=== PATIENT | male | born 1945 | race Caucasian/White ===

== ENCOUNTER 2016-08-12 17:41 | Outpatient (CLI) | payer MEDICARE, OTHER | END 2016-08-12 17:42 | disposition home or self-care (01) | DX: R05 Cough (principal) ==

== ENCOUNTER 2017-01-19 15:22 | Outpatient (CLI) | payer MEDICARE, OTHER ==
[2017-01-19 18:58] LABS: BASOPHILS % (AUTO) 0.2 %; EOSINOPHILS # (AUTO) 0.1 10^3/uL (0.0-0.7); EOSINOPHILS % (AUTO) 1.1 %; HCT - HEMATOCRIT 43.3 % (42.0-52.0); HGB - HEMOGLOBIN 15.1 g/dL (14.0-18.0); LYMPHOCYTES # (AUTO) 0.4 10^3/uL (1.5-3.5); LYMPHOCYTES % (AUTO) 3.7 %; MEAN CORPUSCULAR HEMOGLOBIN 33.5 pg (27.0-31.0); MEAN CORPUSCULAR HGB CONC 34.8 g/dL (32.0-36.0); MEAN CORPUSCULAR VOLUME 96.3 fL (80.0-94.0); MEAN PLATELET VOLUME 9.5 fL (7.4-11.4); MONOCYTES # (AUTO) 0.6 10^3/uL (0.0-1.0); MONOCYTES % (AUTO) 5.4 %; NEUTROPHILS # (AUTO) 9.5 10^3/uL (1.5-6.6); NEUTROPHILS % (AUTO) 89.6 %; NUCLEATED RED BLOOD CELLS AUTO 0.1 /100WBC; RED BLOOD COUNT 4.49 10^6/uL (4.70-6.10); RED CELL DISTRIBUTION WIDTH 17.2 % (12.0-15.0); UNCORRECTED WHITE BLOOD COUNT 10.6 x10^3/uL; WHITE BLOOD COUNT 10.6 x10^3/uL (4.8-10.8)
[2017-01-19 19:32] LABS: FERRITIN 57.5 ng/mL (23.9-336.2)
[2017-01-19 19:36] LABS: FOLATE 13.71 ng/mL (5.90 - >24.8)
[2017-01-19 21:50] LABS: BILIRUBIN,TOTAL 2.4 mg/dL (0.2-1.0); CALCIUM 9.4 mg/dL (8.5-10.3); CREATININE 1.1 mg/dL (0.6-1.2); POTASSIUM 4.4 mmol/L (3.5-5.0); TOTAL PROTEIN 7.8 g/dL (6.7-8.2)
== END 2017-01-19 15:23 | disposition home or self-care (01) ==
LOC: LAB.F 15:22
PROVIDERS: ATTEND Physician Assistant Medical
DX: R05 Cough (principal); D63.8 Anemia in other chronic diseases classified elsewhere; Z79.899 Other long term (current) drug therapy
CPT/HCPCS: 36415; 80053; 82607; 82728; 82746; 83540; 84466; 85025

== ENCOUNTER 2017-10-26 14:12 | Outpatient (CLI) | payer MEDICARE, OTHER ==
[2017-10-26 17:41] LABS: BASOPHILS % (AUTO) 0.2 %; EOSINOPHILS # (AUTO) 0.1 10^3/uL (0.0-0.7); EOSINOPHILS % (AUTO) 1.6 %; HGB - HEMOGLOBIN 13.9 g/dL (14.0-18.0); LYMPHOCYTES # (AUTO) 0.3 10^3/uL (1.5-3.5); LYMPHOCYTES % (AUTO) 4.9 %; MEAN CORPUSCULAR HEMOGLOBIN 32.9 pg (27.0-31.0); MEAN CORPUSCULAR HGB CONC 33.7 g/dL (32.0-36.0); MEAN CORPUSCULAR VOLUME 97.6 fL (80.0-94.0); MEAN PLATELET VOLUME 10.4 fL (7.4-11.4); MONOCYTES # (AUTO) 0.3 10^3/uL (0.0-1.0); MONOCYTES % (AUTO) 5.1 %; NEUTROPHILS # (AUTO) 5.8 10^3/uL (1.5-6.6); NEUTROPHILS % (AUTO) 88.2 %; PLT - PLATELET COUNT 65 10^3/uL (130-450); RED BLOOD COUNT 4.24 10^6/uL (4.70-6.10); WHITE BLOOD COUNT 6.6 x10^3/uL (4.8-10.8)
[2017-10-26 18:02] LABS: ALBUMIN 3.5 g/dL (3.2-5.5); ALBUMIN/GLOBULIN RATIO 0.9 (1.0-2.2); BILIRUBIN,TOTAL 2.1 mg/dL (0.2-1.0); TOTAL PROTEIN 7.5 g/dL (6.7-8.2)
== END 2017-10-26 14:13 | disposition home or self-care (01) ==
LOC: LAB.F 14:12
PROVIDERS: ATTEND Physician Assistant Medical
DX: E87.6 Hypokalemia (principal); D63.8 Anemia in other chronic diseases classified elsewhere
CPT/HCPCS: 36415; 80053; 85025

== ENCOUNTER 2018-01-05 15:06 | Emergency (ER) | payer MEDICARE, OTHER ==
--- NOTE | 2018-01-05 16:00 | XRAY Report ---
EXAM: CHEST RADIOGRAPHY EXAM DATE: 01/05/2018 03:45 PM. CLINICAL HISTORY: Difficulty breathing. COMPARISON: 04/02/2016 and 12/21/2015. TECHNIQUE: 2 views. FINDINGS: Lungs/Pleura: There are moderate coarse reticular and bandlike densities in the right midlung and at both lung bases. There is right-sided pleural thickening and blunting of the costophrenic angles. The se findings appear chronic and without significant interval change. Negative for pneumothorax. Mediastinum: There are findings of previous sternotomy with fracture of the sternotomy wires, similar to previous. Heart size unchanged. Trachea is midline. Other: There are multiple old posterior right rib fractures. IMPRESSION: 1. Chronic bilateral pulmonary parenchymal and pleural densities appearing similar to 2 years earlier . Likely chronic interstitial fibrosis or postinflammatory scarring with right-sided pleural thickeni ng and evidence of old right chest wall trauma. [facility] Referring Provider Line: [phone] SITE ID: [id number]
--- NOTE | 2018-01-05 16:03 | ED Physician Documentation ---
PD HPI DYSPNEA - Stated complaint Stated Complaint: SOA - Chief complaint Chief Complaint: Resp - History obtained from History obtained from: Patient - History of Present Illness Timing - onset: How many weeks ago (a week of worse breathing, cough, wheezing despite home nebs (only using bid/tid though). Much worse breathing overnight into today.) Review of Systems Constitutional: reports: Chills, Myalgias, Fatigue. denies: Fever Nose: reports: Congestion. denies: Rhinorrhea / runny nose Throat: reports: Sore throat Cardiac: denies: Chest pain / pressure, Palpitations, Pedal edema, Calf pain Respiratory: reports: Dyspnea GI: reports: Abdominal Swelling (chronic). denies: Abdominal Pain, Nausea, Vomiting, Diarrhea : denies: Dysuria, Frequency Skin: denies: Rash Musculoskeletal: denies: Back pain, Extremity swelling Neurologic: reports: Generalized weakness. denies: Near syncope Endocrine: reports: Weight loss Immunocompromised: denies: Immunocompromised PD PAST MEDICAL HISTORY - Past Medical History Cardiovascular: Hypertension, High cholesterol, Coronary artery disease, [place], Atrial fibrillation, Other Respiratory: COPD, Pneumonia, Shortness of breath Endocrine/Autoimmune: None GI: GERD, Cirrhosis : Incontinence, Frequency HEENT: Other Psych: Anxiety Musculoskeletal: None Derm: None - Past Surgical History Past Surgical History: Yes General: Colonoscopy, EGD Ortho: Other Cardiovascular: CABG - Present Medications Home Medications: Ambulatory Orders Medication Instructions Recorded Confirmed Buspirone HCl 15 mg PO BID 04/19/15 01/05/18 Digoxin [Lanoxin] 250 mcg PO DAILY 04/19/15 01/05/18 Omeprazole [PriLOSEC] 40 mg PO DAILY 04/19/15 01/05/18 Oxybutynin [Ditropan] 5 mg PO DAILY 04/19/15 01/05/18 Potassium Chloride 10 meq PO DAILY 04/19/15 01/05/18 Tamsulosin [Flomax] 0.4 mg PO DAILY 04/19/15 01/05/18 Aspirin [Aspirin EC] 81 mg PO DAILY 04/25/15 01/05/18 Citalopram [CeleXA] 40 mg PO DAILY 04/25/15 01/05/18 Metoprolol Succinate [Toprol Xl] 25 mg PO DAILY 04/25/15 01/05/18 Diltiazem HCl [Diltiazem 24Hr ER] 180 mg PO DAILY 06/29/15 01/05/18 Furosemide 40 mg PO DAILY 06/29/15 01/05/18 Nitroglycerin [Nitrostat] 0.4 mg SL Q5MIN PRN 06/29/15 01/05/18 Albuterol Sulfate [Proair Hfa 2 puffs INH Q6H PRN 01/05/18 01/05/18 Inhaler] Dexamethasone [Decadron] 4 mg PO DAILY #15 tablet 01/05/18 Ipratropium/Albuterol [Duoneb] 3 ml INH Q6H 01/05/18 01/05/18 Spironolactone 100 mg PO DAILY 01/05/18 01/05/18 Tizanidine HCl 4 mg PO TID PRN 01/05/18 01/05/18 - Allergies Allergies/Adverse Reactions: Allergies Allergy/AdvReac Type Severity Reaction Status Date / Time No Known Drug Allergies Allergy Verified 04/19/15 18:47 - Social History Does the pt smoke?: Yes Smoking Status: Current every day smoker Does the pt drink ETOH?: Yes Does the pt have substance abuse?: No - Family History Family history: reports: Non contributory, COPD - Immunizations Immunizations are current?: Yes - POLST Patient has POLST: No PD ED PE NORMAL - Vitals Vital signs reviewed: Yes - General General: Alert and oriented X 3, Well developed/nourished, Other (tachypnea and work of breathing. ) - HEENT HEENT: Ears normal, Pharynx benign - Neck Neck: Supple, no meningeal sign, No adenopathy - Cardiac Cardiac: RRR, No murmur - Respiratory Respiratory: No: Clear bilaterally (diffuse severe wheezing; no coarse sounds. ) - Abdomen Abdomen: Soft, Non tender, No organomegaly, Other (moderately distended and dullness to percussing, c/w some ascites. Not tense. ). No: Normal bowel sounds (diminished) - Male Male : Deferred - Rectal Rectal: Deferred - Back Back: No CVA TTP - Derm Derm: Normal color, Warm and dry - Extremities Extremities: No deformity, No tenderness to palpate, Normal ROM s pain, No edema , No calf tenderness / cord - Neuro Neuro: Alert and oriented X 3, No motor deficit, Normal speech Results - Vitals Vitals: Vital Signs - 24 hr 01/05/18 01/05/18 01/05/18 15:13 16:05 16:38 Temperature 36.3 C L 36.8 C Heart Rate 71 62 72 Respiratory 22 28 H 21 Rate Blood Pressure 125/97 H 108/72 O2 Saturation 99 99 01/05/18 01/05/18 01/05/18 17:00 17:19 17:38 Temperature 36.8 C 37.3 C Heart Rate 61 64 68 Respiratory 26 H 27 H 30 H Rate Blood Pressure 124/68 110/61 O2 Saturation 96 98 01/05/18 17:47 Temperature 37.2 C Heart Rate 77 Respiratory 28 H Rate Blood Pressure 121/60 O2 Saturation 95 Oxygen O2 Source [With Activity] Nasal cannula O2 Source [Without Activity] Nasal cannula O2 Source Nasal cannula Oxygen Flow Rate 3 - Labs Labs: Laboratory Tests 01/05/18 01/05/18 01/05/18 16:25 16:25 16:25 WBC 6.4 RBC 4.09 L Hgb 12.8 L Hct 38.1 L MCV 93.2 MCH 31.2 H MCHC 33.5 RDW 17.1 H Plt Count 57 L MPV 8.2 Neut # (Auto) 5.4 Lymph # (Auto) 0.3 L [place] # (Auto) 0.5 Eos # (Auto) 0.2 Baso # (Auto) 0.0 Absolute Nucleated RBC 0.01 Nucleated RBC % 0.1 Sodium 125 L Potassium 4.2 Chloride 95 L Carbon Dioxide 25 Anion Gap 5.0 L BUN 15 Creatinine 1.0 Estimated GFR (MDRD) 74 L Glucose 140 H Lactic Acid Calcium 8.2 L Magnesium 1.9 Total Bilirubin 2.0 H AST 24 ALT 21 Alkaline Phosphatase 89 Ammonia B-Natriuretic Peptide 230 H Total Protein 6.8 Albumin 3.0 L Globulin 3.8 Albumin/Globulin Ratio 0.8 L Lipase 26 Last Dose Date Last Dose Time Digoxin 01/05/18 01/05/18 01/05/18 16:25 16:25 17:30 WBC RBC Hgb Hct MCV MCH MCHC RDW Plt Count MPV Neut # (Auto) Lymph # (Auto) [place] # (Auto) Eos # (Auto) Baso # (Auto) Absolute Nucleated RBC Nucleated RBC % Sodium Potassium Chloride Carbon Dioxide Anion Gap BUN Creatinine Estimated GFR (MDRD) Glucose Lactic Acid 2.0 Calcium Magnesium Total Bilirubin AST ALT Alkaline Phosphatase Ammonia 22.2 B-Natriuretic Peptide Total Protein Albumin Globulin Albumin/Globulin Ratio Lipase Last Dose Date UNKNOWN Last Dose Time UNKNOWN Digoxin 2.2 - Rads (name of study) chest xray Radiology: Prelim report reviewed (diffuse scarring or changes c/w fibrosis and COPD. ), EMP read contemporaneously PD MEDICAL DECISION MAKING - ED course Complexity details: reviewed results (given the diffuse changes on xray, would be hard to tell if new infiltrate or such, and given history of COPD, would benefit from empiric abx Rx. ), re-evaluated patient (he is still having work of breathing and diffuse wheezing. He has had this for a week but worse the past day. Numbers (sats, vitals, labs) are good. I think he would benefit from more aggressive treatment in the hospital but he wants to go home. He is encouraged to return if worse or not readily improving. ), considered differential, d/w patient, d/w family (sister) Departure - Departure Disposition: Home, Self Care Clinical Impression: Severe chronic obstructive pulmonary disease, Dyspnea and respiratory abnormality, COPD exacerbation, Hyponatremia Chronic liver failure Qualifiers: Hepatic coma status: without hepatic coma Qualified Code(s): K72.10 - Chronic hepatic failure without coma Congestive heart failure Qualifiers: Heart failure type: unspecified Heart failure chronicity: chronic Qualified Code(s): I50.9 - Heart failure, unspecified Condition: Stable Record reviewed to determine appropriate education?: Yes Instructions: ED Bronchitis Asthmatic, ED COPD Flare Follow-Up: Kristen Schmitz PA-C [Primary Care Provider] - Prescriptions: Dexamethasone [Decadron] 4 mg PO DAILY #15 tablet Comments: This seems to be a flareup of the COPD and does not look like CHF as well. Use your home Duoneb nebulizer 3 times a day and to that add albuterol nebulizer alone every 2-3 hours as needed for the wheezing. Hold your digoxin for 1-2 days as the level is a bit high in the bloodstream, likely due to illness and lessened metabolism. Hold your furosemide for 1 day as you do not seem to be in fluid overload and your sodium level is a little bit low. Decadron steroid twice daily for 5 days and then once daily for 5 days. Doxycycline antibiotic twice daily for a week. Call your primary care tomorrow for an input for follow-up in the next few days. Return to the ER sooner if worsening again. I think you might do better being in the hospital for a day or 2 until this is improving but I understand your wanting to go home. Please return if you are worsening and we will continue treatments here. Discharge Date/Time: 01/05/18 18:30
[2018-01-05] MEDS ORDERED: DOXYCYCLINE INJ 100 MG in SODIUM CHLORIDE 0.9% MINIBAG 100 ML IV STA (16:16)
[2018-01-05] MEDS ORDERED: IPRATROPIUM/ALBUTEROL 3 ML NEB INH STA (16:16)
[2018-01-05] MEDS ORDERED: DEXAMETHASONE 10 MG/ML VIAL IVP STA (16:16)
[2018-01-05 16:32] LABS: BASOPHILS % (AUTO) 0.7 %; EOSINOPHILS # (AUTO) 0.2 10^3/uL (0.0-0.7); EOSINOPHILS % (AUTO) 2.5 %; HGB - HEMOGLOBIN 12.8 g/dL (14.0-18.0); LYMPHOCYTES # (AUTO) 0.3 10^3/uL (1.5-3.5); LYMPHOCYTES % (AUTO) 4.6 %; MEAN CORPUSCULAR HEMOGLOBIN 31.2 pg (27.0-31.0); MEAN CORPUSCULAR HGB CONC 33.5 g/dL (32.0-36.0); MEAN CORPUSCULAR VOLUME 93.2 fL (80.0-94.0); MEAN PLATELET VOLUME 8.2 fL (7.4-11.4); MONOCYTES # (AUTO) 0.5 10^3/uL (0.0-1.0); MONOCYTES % (AUTO) 7.7 %; NEUTROPHILS # (AUTO) 5.4 10^3/uL (1.5-6.6); NEUTROPHILS % (AUTO) 84.5 %; PLT - PLATELET COUNT 57 10^3/uL (130-450); RED BLOOD COUNT 4.09 10^6/uL (4.70-6.10); RED CELL DISTRIBUTION WIDTH 17.1 % (12.0-15.0); WHITE BLOOD COUNT 6.4 x10^3/uL (4.8-10.8)
[2018-01-05 16:47] LABS: ALBUMIN/GLOBULIN RATIO 0.8 (1.0-2.2); CALCIUM 8.2 mg/dL (8.5-10.3); MAGNESIUM 1.9 mg/dL (1.7-2.8); TOTAL PROTEIN 6.8 g/dL (6.7-8.2)
[2018-01-05 16:50] LABS: DIGOXIN 2.2 ng/mL
[2018-01-05] MEDS ORDERED: SODIUM CHLORIDE 0.9% 500 ML IV ONE ×2 (17:01→18:00)
[2018-01-05] MEDS ORDERED: ALBUTEROL NEB 2.5 MG/3 ML INH STA ×2 (17:01→17:22)
[2018-01-05] MEDS ORDERED: NICOTINE 14 MG PATCH TOP STA (17:27)
[2018-01-05] MEDS ORDERED: LORazepam 2 MG/ML VIAL IVP STA (17:48)
[2018-01-05 17:49] VITALS: BP 121/60
[2018-01-05] MEDS ORDERED: SODIUM CHLORIDE FLUSH 0.9% 10 ML SYRINGE IVP PRN (17:58)
[2018-01-06] MEDS ORDERED: SODIUM CHLORIDE FLUSH 0.9% 10 ML SYRINGE IVP SCH (01:00)
[2018-01-06] MEDS ORDERED: POLYETHYLENE GLYCOL 3350 17 GM PACKET PO SCH (09:00)
== END 2018-01-05 18:30 | disposition home or self-care (01) ==
LOC: ED 15:06
DX: J44.1 Chronic obstructive pulmonary disease with (acute) exacerbation (principal); E87.1 Hypo-osmolality and hyponatremia; K72.10 Chronic hepatic failure without coma; I11.0 Hypertensive heart disease with heart failure; I50.9 Heart failure, unspecified; E78.00 Pure hypercholesterolemia, unspecified; I25.2 Old myocardial infarction; I25.10 Atherosclerotic heart disease of native coronary artery without angina pectoris; F17.200 Nicotine dependence, unspecified, uncomplicated; Z95.1 Presence of aortocoronary bypass graft; Z79.82 Long term (current) use of aspirin
CPT/HCPCS: 36415; 71046; 80053; 80162; 82140; 83605; 83690; 83735; 83880; 85025; 94640; 94664; 96361; 96365; 96375; 99283; 99284; A9270; J2060

== ENCOUNTER 2018-01-12 | Outpatient (CLI) | END 2018-01-12 20:38 | disposition critical access hospital (66) | CPT/HCPCS: A0425; A0427 ==

== ENCOUNTER 2018-01-12 15:40 | Emergency (ER) | payer MEDICARE, OTHER ==
[2018-01-12] MEDS ORDERED: PANTOPRAZOLE 40 MG VIAL IVP STA (15:48)
[2018-01-12] MEDS ORDERED: IPRATROPIUM/ALBUTEROL 3 ML NEB INH STA (15:50)
--- NOTE | 2018-01-12 15:52 | ED Physician Documentation ---
PD HPI GI BLEED - Stated complaint Stated Complaint: WEAKNESS - History obtained from History obtained from: Patient, EMS - History of Present Illness Timing - onset: Other (72-year-old gentleman with a history of bad COPD and alcoholic cirrhosis presents with lower GI bleeding with bright red blood per rectum and clots for the last couple of weeks. He is a somewhat vague historian and fairly hard of hearing, he says he is never had bleeding like this before and denies any significant abdominal or rectal pain with it. He does not know when the last time he had a paracentesis was, but he has had them done before. He was not hemodynamically unstable prior to arrival.) Review of Systems Ten Systems: 10 systems reviewed and negative Constitutional: reports: Fatigue. denies: Fever, Chills Respiratory: reports: Dyspnea, Cough GI: denies: Abdominal Pain PD PAST MEDICAL HISTORY - Past Medical History Cardiovascular: Hypertension, High cholesterol, Coronary artery disease, [place], Atrial fibrillation, Other Respiratory: COPD, Pneumonia, Shortness of breath Endocrine/Autoimmune: None GI: GERD, Cirrhosis : Incontinence, Frequency HEENT: Other Psych: Anxiety Musculoskeletal: None Derm: None - Past Surgical History Past Surgical History: Yes General: Colonoscopy, EGD Ortho: Other Cardiovascular: CABG - Present Medications Home Medications: Ambulatory Orders Medication Instructions Recorded Confirmed Buspirone HCl 15 mg PO BID 04/19/15 01/12/18 Digoxin [Lanoxin] 250 mcg PO DAILY 04/19/15 01/12/18 Omeprazole [PriLOSEC] 40 mg PO DAILY 04/19/15 01/12/18 Oxybutynin [Ditropan] 5 mg PO DAILY 04/19/15 01/12/18 Potassium Chloride 10 meq PO DAILY 04/19/15 01/12/18 Tamsulosin [Flomax] 0.4 mg PO DAILY 04/19/15 01/12/18 Aspirin [Aspirin EC] 81 mg PO DAILY 04/25/15 01/12/18 Citalopram [CeleXA] 40 mg PO DAILY 04/25/15 01/12/18 Metoprolol Succinate [Toprol Xl] 25 mg PO DAILY 04/25/15 01/12/18 Diltiazem HCl [Diltiazem 24Hr ER] 180 mg PO DAILY 06/29/15 01/12/18 Furosemide 40 mg PO DAILY 06/29/15 01/12/18 Nitroglycerin [Nitrostat] 0.4 mg SL Q5MIN PRN 06/29/15 01/12/18 Albuterol Sulfate [Proair Hfa 2 puffs INH Q6H PRN 01/05/18 01/12/18 Inhaler] Ipratropium/Albuterol [Duoneb] 3 ml INH Q6H 01/05/18 01/12/18 Spironolactone 100 mg PO DAILY 01/05/18 01/12/18 Tizanidine HCl 4 mg PO TID PRN 01/05/18 01/12/18 - Allergies Allergies/Adverse Reactions: Allergies Allergy/AdvReac Type Severity Reaction Status Date / Time No Known Drug Allergies Allergy Verified 04/19/15 18:47 - Social History Does the pt smoke?: Yes Smoking Status: Current every day smoker Does the pt drink ETOH?: Yes Does the pt have substance abuse?: No - Immunizations Immunizations are current?: Yes - POLST Patient has POLST: No PD ED PE NORMAL - Vitals Vital signs reviewed: Yes - General General: Alert and oriented X 3, Other (He is hard of hearing and obviously breathless, he is on his 2.5 L of home oxygen.) - HEENT HEENT: PERRL, EOMI - Neck Neck: Supple, no meningeal sign, No bony TTP - Cardiac Cardiac: RRR, No murmur - Respiratory Respiratory: Other (Very rhonchorous and wheezy throughout with decent air motion, breathing a little fast.) - Abdomen Abdomen: Other (He has tense ascites, there is no tenderness.) - Rectal Rectal: Other (Obvious and significant dark blood from rectum without external hemorrhoid.) - Back Back: No CVA TTP, No spinal TTP - Extremities Extremities: No edema, No calf tenderness / cord - Neuro Neuro: Alert and oriented X 3, Normal speech Results - Vitals Vitals: Vital Signs - 24 hr 01/12/18 01/12/18 01/12/18 15:53 16:22 17:03 Temperature 36.4 C L Heart Rate 70 57 L 57 L Respiratory 27 H 26 H 24 Rate Blood Pressure 113/67 O2 Saturation 96 01/12/18 01/12/18 19:39 21:03 Temperature 36.6 C Heart Rate 85 82 Respiratory 33 H 17 Rate Blood Pressure 127/74 124/76 O2 Saturation 97 97 Oxygen O2 Source [With Activity] Nasal cannula O2 Source [Without Activity] Nasal cannula O2 Source Room air - Labs Labs: Microbiology 01/12/18 16:25 Body Fluid Culture - Preliminary Ascities Fluid Laboratory Tests 01/12/18 01/12/18 01/12/18 15:57 15:57 15:57 WBC 12.2 H RBC 4.33 L Hgb 13.8 L Hct 41.1 L MCV 94.9 H MCH 31.8 H MCHC 33.5 RDW 17.4 H Plt Count 56 L MPV 9.0 Neut # (Auto) 11.4 H Lymph # (Auto) 0.1 L [place] # (Auto) 0.7 Eos # (Auto) 0.0 Baso # (Auto) 0.0 Absolute Nucleated RBC 0.01 Nucleated RBC % 0.1 PT 18.1 H INR 1.6 H Sodium 129 L Potassium 5.8 H Chloride 98 L Carbon Dioxide 25 Anion Gap 6.0 BUN 62 H Creatinine 1.2 Estimated GFR (MDRD) 60 L Glucose 115 H Calcium 8.9 Total Bilirubin 2.9 H AST 19 ALT 33 Alkaline Phosphatase 82 Ammonia Total Protein 6.8 Albumin 2.8 L Globulin 4.0 Albumin/Globulin Ratio 0.7 L Lipase 30 Fluid Source Fluid Color Fluid Clarity Fluid WBC Fluid RBC Fluid Neutrophils % Fluid Lymphocytes % Fluid Monocytes % Fluid Eosinophils % Fluid Macrophages % Fld Mesothelial Cell % Last Dose Date Last Dose Time Digoxin Ethyl Alcohol < 5.0 Blood Type Blood Type Recheck Antibody Screen Crossmatch IS Only 01/12/18 01/12/18 01/12/18 15:57 15:57 16:02 WBC RBC Hgb Hct MCV MCH MCHC RDW Plt Count MPV Neut # (Auto) Lymph # (Auto) [place] # (Auto) Eos # (Auto) Baso # (Auto) Absolute Nucleated RBC Nucleated RBC % PT INR Sodium Potassium Chloride Carbon Dioxide Anion Gap BUN Creatinine Estimated GFR (MDRD) Glucose Calcium Total Bilirubin AST ALT Alkaline Phosphatase Ammonia Total Protein Albumin Globulin Albumin/Globulin Ratio Lipase Fluid Source Fluid Color Fluid Clarity Fluid WBC Fluid RBC Fluid Neutrophils % Fluid Lymphocytes % Fluid Monocytes % Fluid Eosinophils % Fluid Macrophages % Fld Mesothelial Cell % Last Dose Date UNKNOWN Last Dose Time UNKNOWN Digoxin 1.6 Ethyl Alcohol Blood Type O POSITIVE Blood Type Recheck O POSITIVE Antibody Screen NEGATIVE Crossmatch IS Only See Detail 01/12/18 01/12/18 01/12/18 16:25 18:23 18:42 WBC RBC Hgb 13.8 L Hct 40.7 L MCV MCH MCHC RDW Plt Count MPV Neut # (Auto) Lymph # (Auto) [place] # (Auto) Eos # (Auto) Baso # (Auto) Absolute Nucleated RBC Nucleated RBC % PT INR Sodium Potassium Chloride Carbon Dioxide Anion Gap BUN Creatinine Estimated GFR (MDRD) Glucose Calcium Total Bilirubin AST ALT Alkaline Phosphatase Ammonia 46.7 H Total Protein Albumin Globulin Albumin/Globulin Ratio Lipase Fluid Source PERITONEAL Fluid Color STRAW Fluid Clarity HAZY Fluid WBC 49 Fluid RBC 884 Fluid Neutrophils % 45 Fluid Lymphocytes % 6 Fluid Monocytes % 3 Fluid Eosinophils % 0 Fluid Macrophages % 46 Fld Mesothelial Cell % 0 Last Dose Date Last Dose Time Digoxin Ethyl Alcohol Blood Type Blood Type Recheck Antibody Screen Crossmatch IS Only Procedures - Paracentesis Preparation: Consent obtained (verbal), Local anesthesia (lidocaine with epi) Location: RLQ Technique: Other (Wanted to do a simple diagnostic paracentesis given the elevated white count, because it was before I had his INR back I did it simply with a 18-gauge needle to get 20 cc of fluid to send the lab as opposed to a formal paracentesis. It was clear.) Fluid: Clear, Sent for cell count, Sent for gram stain, Sent for culture Aftercare: No complications PD MEDICAL DECISION MAKING - ED course ED course: 72-year-old gentleman with alcoholic cirrhosis, abnormal coagulation parameters and thrombocytopenia presents with lower GI bleed that appears large on exam but he is not hemodynamic his H&H is where it usually is. He does have a leukocytosis, this may be from recent steroids that he was given for COPD flare. Diagnostic paracentesis was done. He was started on Protonix and I spoke with the on-call surgeon here Dr. Cm who felt that given his comorbidities even if this looks like an lower GI bleed he should be transferred to a higher level of care with GI and platelets in-house. Call to hospitalist at [facility] at 4:31 PM for potential transfer. The diagnostic paracentesis was negative for SBP, the white counts there was only 49. He received initially a DuoNeb without much change and this was followed by double Xopenex. Given the ongoing COPD exacerbation he was also administered Rocephin. Given the ongoing GI bleeding I was on the fence about giving him further steroids. Updated sister by phone with verbal permission from the pt. After some delay [facility] called me back- they are full and unable to accept in transfer. Called sister back, try [facility] was also full. More delays, but spoke with Dr Hightower at [facility], who accepts in transfer. - Sepsis Event Vital Signs: Vital Signs - 24 hr 01/12/18 01/12/18 01/12/18 15:53 16:22 17:03 Temperature 36.4 C L Heart Rate 70 57 L 57 L Respiratory 27 H 26 H 24 Rate Blood Pressure 113/67 O2 Saturation 96 01/12/18 01/12/18 19:39 21:03 Temperature 36.6 C Heart Rate 85 82 Respiratory 33 H 17 Rate Blood Pressure 127/74 124/76 O2 Saturation 97 97 Oxygen O2 Source [With Activity] Nasal cannula O2 Source [Without Activity] Nasal cannula O2 Source Room air Departure - Departure Disposition: 02 Transfer Acute Care Hosp Clinical Impression: Lower GI bleed, COPD exacerbation Cirrhosis Qualifiers: Hepatic cirrhosis type: alcoholic cirrhosis Ascites presence: with ascites Qualified Code(s): K70.31 - Alcoholic cirrhosis of liver with ascites Condition: Serious
[2018-01-12 16:12] LABS: BASOPHILS % (AUTO) 0.4 %; HGB - HEMOGLOBIN 13.8 g/dL (14.0-18.0); LYMPHOCYTES # (AUTO) 0.1 10^3/uL (1.5-3.5); LYMPHOCYTES % (AUTO) 0.7 %; MEAN CORPUSCULAR HEMOGLOBIN 31.8 pg (27.0-31.0); MEAN CORPUSCULAR HGB CONC 33.5 g/dL (32.0-36.0); MEAN CORPUSCULAR VOLUME 94.9 fL (80.0-94.0); MONOCYTES # (AUTO) 0.7 10^3/uL (0.0-1.0); MONOCYTES % (AUTO) 5.8 %; NEUTROPHILS # (AUTO) 11.4 10^3/uL (1.5-6.6); NEUTROPHILS % (AUTO) 93.1 %; PLT - PLATELET COUNT 56 10^3/uL (130-450); RED BLOOD COUNT 4.33 10^6/uL (4.70-6.10); RED CELL DISTRIBUTION WIDTH 17.4 % (12.0-15.0); WHITE BLOOD COUNT 12.2 x10^3/uL (4.8-10.8)
[2018-01-12 16:19] LABS: INR 1.6 (0.8-1.2); PT - PROTHROMBIN TIME 18.1 secs (9.9-12.6)
[2018-01-12 16:25] LABS: ALBUMIN 2.8 g/dL (3.2-5.5); ALBUMIN/GLOBULIN RATIO 0.7 (1.0-2.2); ALKALINE PHOSPHATASE 82 IU/L (42-121); ALT ALANINE AMINOTRANSFERASE 33 IU/L (10-60); AST ASPARTATE AMINOTRANSFERASE 19 IU/L (10-42); BILIRUBIN,TOTAL 2.9 mg/dL (0.2-1.0); BUN - BLOOD UREA NITROGEN 62 mg/dL (6-20); CALCIUM 8.9 mg/dL (8.5-10.3); CARBON DIOXIDE - CO2 25 mmol/L (21-32); CHLORIDE 98 mmol/L (101-111); CREATININE 1.2 mg/dL (0.6-1.2); GFR - MDRD 60 (>89); GLUCOSE 115 mg/dL (70-100); LIPASE 30 U/L (22-51); SODIUM 129 mmol/L (135-145); TOTAL PROTEIN 6.8 g/dL (6.7-8.2)
[2018-01-12 16:28] LABS: DIGOXIN 1.6 ng/mL
[2018-01-12] MEDS ORDERED: LIDOCAINE 1%-EPI 1:100000 30 ML MDV ONE (16:30)
[2018-01-12 16:58] LABS: BF COLOR STRAW; BF SOURCE PERITONEAL; CC,BF RBC 884 /mm^3
[2018-01-12] MEDS ORDERED: cefTRIAXone 1 GM in SODIUM CHLORIDE 0.9% MINIBAG 100 ML IV STA (16:59)
[2018-01-12] MEDS ORDERED: LEVALBUTEROL 1.25 MG/3 ML NEB INH STA (16:59)
[2018-01-12 18:00] LABS: EOSINOPHILS %,BODY FLUID 0 %; LYMPHOCYTES %,BODY FLUID 6; MONOCYTES %,BODY FLUID 3 %
[2018-01-12 18:01] LABS: MACROPHAGES %,BODY FLUID 46 %; MESOTHELIAL %, BF 0 %
[2018-01-12] MEDS ORDERED: NICOTINE 21 MG PATCH TOP STA (18:19)
[2018-01-12 18:47] LABS: HGB - HEMOGLOBIN 13.8 g/dL (14.0-18.0)
[2018-01-12 22:58] VITALS: BP 119/80
== END 2018-01-12 23:05 | disposition short-term general hospital (02) ==
LOC: EDUNIT# → ED 15:40
DX: K92.2 Gastrointestinal hemorrhage, unspecified (principal); J44.1 Chronic obstructive pulmonary disease with (acute) exacerbation; K70.31 Alcoholic cirrhosis of liver with ascites; I10 Essential (primary) hypertension; I25.10 Atherosclerotic heart disease of native coronary artery without angina pectoris; D69.6 Thrombocytopenia, unspecified; D72.829 Elevated white blood cell count, unspecified; F17.200 Nicotine dependence, unspecified, uncomplicated; Z95.1 Presence of aortocoronary bypass graft; Z79.82 Long term (current) use of aspirin; Z99.81 Dependence on supplemental oxygen
CPT/HCPCS: 36415; 49082; 80053; 80162; 82140; 83690; 85014; 85018; 85025; 85610; 86850; 86900; 86901; 86920; 87070; 87205; 89051; 94640; 96365; 96366; 96375; 99284; 99285; A9270; G0480; 80320

== ENCOUNTER 2018-01-12 23:05 | Outpatient (CLI) | payer MEDICARE, OTHER | END 2018-01-12 23:06 | disposition home or self-care (01) | LOC: EDBD → EDUNIT# 23:05 → EMS 23:05 | PROVIDERS: ATTEND Surgery | DX: K92.1 Melena (principal) | CPT/HCPCS: A0425; A0426 ==